=== PATIENT | male | born 1945 | race Caucasian/White ===

== ENCOUNTER 2020-01-19 12:17 | Emergency (ER) | payer OTHER ==
--- NOTE | 2020-01-19 14:40 | CR ---
CHEST: 2 view CLINICAL HISTORY:SOB cough COMPARISON:None FINDINGS: Heart size is upper limits of normal. Patient is a moderate-sized hilar hernia. Pulmonary vascular is normal. There is a diffuse right upper lobe infiltrate. There is also some infiltrate in the right lower lobe. There is minimal patchy density in the left perihilar region of questioned significance. IMPRESSION: Right lung pneumonia Hiatal hernia
--- NOTE | 2020-01-19 14:47 | EDM.PDOC ---
ED HPI GENERAL MEDICAL PROBLEM - General Chief Complaint: Fever Stated Complaint: SOB, COUGH, CHILLS, FEVER, WEAKNESS Time Seen by Provider: 01/19/20 12:40 Source of Information: Reports: Patient History Limitations: Reports: No Limitations - History of Present Illness INITIAL COMMENTS - FREE TEXT/NARRATIVE: 74-year-old male, non-smoker but history of COPD, presents with several weeks of weakness in his legs and arms, several days of intermittent fevers and mild cough. He lives alone and has stumbled and fell a couple of times over the past few days because of his weakness. He started getting concerned that he might have COVID, so called the clinic this morning to get a test and they sent him to the emergency room. He arrived with normal O2 saturations and respiratory rate, no obvious objective shortness of breath, and his temperature is 99.2. His main complaint is weakness and concerned about infection. He has chronic intermittent diarrhea, that is unchanged. No nausea or vomiting, no productive cough. Onset: Gradual Duration: Week(s): (2 to 3 weeks) Quality: Reports: Other (Patient has no pain) Associated Symptoms: Reports: Cough, Fever/Chills, Malaise, Shortness of Breath, Weakness. Denies: Chest Pain, Diaphoresis, Headaches, Nausea/Vomiting Bilateral Leg Pain Score (Numeric/FACES): 5 - Related Data Allergies Allergy/AdvReac Type Severity Reaction Status Date / Time Penicillins Allergy Hives Verified 01/19/20 12:37 Home Meds: Home Meds Albuterol Sulfate [Albuterol Sulfate Hfa] 2 puff IH Q6HR PRN 01/19/20 [History] Albuterol/Ipratropium [Combivent Respimat] 4 gm IH QID 01/19/20 [History] Budesonide/Formoterol Fumarate [Budesonide-Formoterol 160-4.5] 2 puff IH BID 01/19/20 [History] Finasteride 5 mg PO DAILY 01/19/20 [History] Glucosam/Chond-MSM 2/C/D3/Cedric [[id number]] 1 each PO BID 01/19/20 [History] Omeprazole 40 mg PO DAILY 01/19/20 [History] Tamsulosin HCl 0.4 mg PO DAILY 01/19/20 [History] Past Medical History Cardiovascular History: Reports: Hypertension Respiratory History: Reports: COPD, Pneumonia, Recurrent Gastrointestinal History: Reports: None Genitourinary History: Reports: BPH, Prostate Disorder, Renal Calculus Musculoskeletal History: Reports: Arthritis, Osteoarthritis Neurological History: Reports: None Psychiatric History: Reports: Depression Endocrine/Metabolic History: Reports: None Hematologic History: Reports: Iron Deficiency Immunologic History: Reports: None Oncologic (Cancer) History: Reports: None Dermatologic History: Reports: None - Infectious Disease History Infectious Disease History: Reports: Pertussis (Whooping Cough) - Past Surgical History HEENT Surgical History: Reports: Adenoidectomy, Tonsillectomy GI Surgical History: Reports: Colonoscopy Musculoskeletal Surgical History: Reports: None Social & Family History - Caffeine Use Caffeine Use: Reports: Tea - Recreational Drug Use Recreational Drug Use: No ED ROS GENERAL - Review of Systems Review Of Systems: See Below Constitutional: Reports: Fever, Chills, Malaise HEENT: Denies: Throat Pain Respiratory: Reports: Shortness of Breath, Cough. Denies: Sputum Cardiovascular: Denies: Chest Pain GI/Abdominal: Reports: Decreased Appetite. Denies: Abdominal Pain, Nausea, Vomi ting : Reports: No Symptoms Musculoskeletal: Reports: No Symptoms Skin: Reports: No Symptoms Neurological: Reports: Weakness (Especially extremities) Psychiatric: Reports: No Symptoms ED EXAM, GENERAL - Physical Exam Exam: See Below Exam Limited By: No Limitations General Appearance: Alert, No Apparent Distress Eye Exam: Bilateral Eye: Normal Inspection Head: Atraumatic Neck: Non-Tender Respiratory/Chest: Rales (Rales and crackles are heard in the right upper lung) Cardiovascular: Regular Rate, Rhythm. No: Tachycardia GI/Abdominal: Soft, Non-Tender Extremities: Normal Inspection. No: Pedal Edema Neurological: Alert, Oriented, No Motor/Sensory Deficits Psychiatric: Normal Affect, Normal Mood Skin Exam: Warm, Dry Course - Vital Signs Last Recorded V/S: Last Vital Signs Temp 99.3 F 01/19/20 12:32 Pulse 64 01/19/20 12:32 Resp 20 01/19/20 12:32 BP 102/57 L 01/19/20 12:32 Pulse Ox 95 01/19/20 12:32 - Orders/Labs/Meds Orders: Active Orders 24 hr Category Date Time Status Chest 2V [CR] Routine Exams 09/25/20 12:57 Ordered CBC WITH AUTO DIFF [HEME] Stat Lab 01/19/20 12:56 Stop Req COMPREHENSIVE METABOLIC PN,CMP [CHEM] Stat Lab 01/19/20 12:56 Stop Req CORONAVIRUS COVID-19, REGAN Stat Lab 01/19/20 12:57 Stop Req CORONAVIRUS COVID-19, REGAN Stat Lab 01/19/20 14:15 Received CREATINE KINASE,CK [CHEM] Stat Lab 01/19/20 12:56 Stop Req Azithromycin [Zithromax] Med 01/19/20 13:19 Once 1,000 mg PO ONETIME ONE Sodium Chloride 0.9% [Normal Saline] 50 ml Med 01/19/20 13:19 Ordered cefTRIAXone [Rocephin] 1 gm IV 100 mls/hr Labs: Laboratory Tests 01/19/20 01/19/20 Range/Units 14:22 14:22 WBC 13.4 H (4.5-11.0) K/uL RBC 3.82 L (4.30-5.90) M/uL Hgb 11.9 L (12.0-15.0) g/dL Hct 35.5 L (40.0-54.0) % MCV 93 (80-98) fL MCH 31 (27-31) pg MCHC 34 (32-36) % Plt Count 154 (150-400) K/uL Neut % (Auto) 87 H (36-66) % Lymph % (Auto) 5 L (24-44) % [place] % (Auto) 8 H (2-6) % Eos % (Auto) 1 L (2-4) % Baso % (Auto) 0 (0-1) % Sodium 137 L (140-148) mmol/L Potassium 3.7 (3.6-5.2) mmol/L Chloride 102 (100-108) mmol/L Carbon Dioxide 24 (21-32) mmol/L Anion Gap 14.7 H (5.0-14.0) mmol/L BUN 18 (7-18) mg/dL Creatinine 1.2 (0.8-1.3) mg/dL Est Cr Clr Drug Dosing 57.45 mL/min Estimated GFR (MDRD) 60 (>60) Glucose 111 H (74-106) mg/dL Calcium 8.5 (8.5-10.1) mg/dL Total Bilirubin 0.5 (0.2-1.0) mg/dL AST 39 H (15-37) U/L ALT 36 (12-78) U/L Alkaline Phosphatase 62 (46-116) U/L Creatine Kinase 162 (39-308) U/L Total Protein 6.6 (6.4-8.2) g/dL Albumin 3.2 L (3.4-5.0) g/dL Globulin 3.4 (2.3-3.5) g/dL Albumin/Globulin Ratio 0.9 L (1.2-2.2) - Re-Assessments/Exams Free Text/Narrative Re-Assessment/Exam: 01/19/20 14:46 2 view chest x-ray was done which showed right upper lobe pneumonia. A COVID-19 test was obtained and an IV started. Patient was given 1000 mg of oral Zithromax and 1000 mg of IV Rocephin. CBC CMP and CK were obtained. 01/19/20 14:47 White count was 13,400, the remaining labs were reassuring. Kidney function was normal, CK was normal. Patient will be placed on oral Zithromax and cephalexin, and asked to return if not improving in the next few days. Departure - Departure Time of Disposition: 15:14 Disposition: Home, Self-Care 01 Clinical Impression: Right upper lobe pneumonia Qualifiers: Pneumonia type: due to unspecified organism Qualified Code(s): J18.9 - Pneumonia, unspecified organism - Discharge Information Instructions: Community-Acquired Pneumonia, Adult, [id number] Referrals: PCP,None [Primary Care Provider] - Forms: ED Department Discharge Care Plan Goals: Rest today, stay hydrated and start both oral antibiotics as directed tomorrow. Increase activity as tolerated and recheck at any time if worsening despite treatment, or consider rechecking in 5 to 10 days if not improving satisfactorily. You will be contacted with your COVID results when available. Sepsis Event Note (ED) - Evaluation Sepsis Screening Result: No Definite Risk - My Orders Last 24 Hours: My Active Orders 01/19/20 12:56 CBC WITH AUTO DIFF [HEME] Stat COMPREHENSIVE METABOLIC PN,CMP [CHEM] Stat CREATINE KINASE,CK [CHEM] Stat 01/19/20 12:57 Chest 2V [CR] Routine CORONAVIRUS COVID-19, REGAN Stat 01/19/20 13:19 Azithromycin [Zithromax] 1,000 mg PO ONETIME ONE Sodium Chloride 0.9% [Normal Saline] 50 ml cefTRIAXone [Rocephin] 1 gm IV 100 mls/hr 01/19/20 14:15 CORONAVIRUS COVID-19, REGAN Stat - Assessment/Plan Last 24 Hours: My Active Orders 01/19/20 12:56 CBC WITH AUTO DIFF [HEME] Stat COMPREHENSIVE METABOLIC PN,CMP [CHEM] Stat CREATINE KINASE,CK [CHEM] Stat 01/19/20 12:57 Chest 2V [CR] Routine CORONAVIRUS COVID-19, REGAN Stat 01/19/20 13:19 Azithromycin [Zithromax] 1,000 mg PO ONETIME ONE Sodium Chloride 0.9% [Normal Saline] 50 ml cefTRIAXone [Rocephin] 1 gm IV 100 mls/hr 01/19/20 14:15 CORONAVIRUS COVID-19, REGAN Stat
== END 2020-01-19 15:14 | disposition home or self-care (01) ==
LOC: JP.ED 12:17
DX: J18.9 Pneumonia, unspecified organism (principal); J44.9 Chronic obstructive pulmonary disease, unspecified; I10 Essential (primary) hypertension; N40.0 Benign prostatic hyperplasia without lower urinary tract symptoms; Z20.828 Contact with and (suspected) exposure to other viral communicable diseases; Z88.0 Allergy status to penicillin; Z79.899 Other long term (current) drug therapy
CPT/HCPCS: 36415; 71046; 71046-26; 80053; 82550; 85025; 99284; 99285-25; U0002